=== PATIENT | male | born 1970 | race Caucasian/White ===

== ENCOUNTER 2019-02-04 06:18 | Inpatient (IN) | payer OTHER ==
[2019-02-01 08:50] LABS: BASOPHILS # (AUTO) 0.02 x10^3/uL (0-0.1); BASOPHILS % (AUTO) 0 % (0-1); EOSINOPHILS # (AUTO) 0.25 x10^3/uL (0-0.4); EOSINOPHILS % (AUTO) 4 % (1-7); LYMPHOCYTES # (AUTO) 2.05 x10^3/uL (1-3.4); LYMPHOCYTES % (AUTO) 29 % (22-44); MD NO; MEAN CORPUSCULAR HEMOGLOBIN 29.3 pg (27.5-34.5); MEAN CORPUSCULAR HGB CONC 32.7 g/dL (33.2-36.2); MEAN CORPUSCULAR VOLUME 89.7 fL (81-97); MEAN PLATELET VOLUME 8.1 fL (7.4-10.4); MONOCYTES # (AUTO) 0.42 x10^3/uL (0.2-0.8); MONOCYTES % (AUTO) 6 % (2-9); NEUTROPHILS # (AUTO) 4.36 x10^3/uL (1.8-6.8); NEUTROPHILS % (AUTO) 61 % (42-75); PLATELET COUNT 285 x10^3/uL (130-400); RED BLOOD COUNT 5.76 x10^6/uL (4.38-5.82); RED CELL DISTRIBUTION WIDTH 13.2 % (9.4-14.8)
[2019-02-01 09:03] LABS: ANION GAP 6 mmol/L (5-15); CALCIUM 9.1 mg/dL (8.5-10.1); CHLORIDE 111 mmol/L (98-107); CREATININE 0.96 mg/dL (0.7-1.3); INTERNATIONAL NORMALIZED RATIO 1.01 (0.93-1.1); PROTHROMBIN TIME 10.6 Seconds (9.6-11.5)
[2019-02-01 13:23] LABS: HEMOGLOBIN A1C 5.8 % (4.2-6.3)
[~2019-02-04] VITALS: Ht 177.8 cm; Wt 112.0 kg
[~2019-02-04 06:18] MED LIST: ALBU18HF INH; ASPI-647 PO; FLUT1AER INH; HYDR-3237 PO; HYDR-3241 PO; LACT1CAP35 PO; MELO15TA24 PO; MONT10TA9 PO; MORP30TA3 PO; MULT-412 PO; ONDA4TAB10 PO; OXYC5CAP2 PO; QVAR INH
[2019-02-04] MEDS ORDERED: ROPIvacaine/PF 0.5%, 20 ML ONE (06:19)
[2019-02-04] MEDS ORDERED: TRANEXAMIC ACID 100 MG/ML, 10ML ONE (06:19)
[2019-02-04] MEDS ORDERED: KETOROLAC 60 MG/2 ML ONE (06:19)
[2019-02-04] MEDS ORDERED: SODIUM CHLORIDE 0.9% 50 ML ONE (06:20)
[2019-02-04] MEDS ORDERED: VANCOMYCIN 1,000 MG ONE (06:20)
[2019-02-04] MEDS ORDERED: EPINEPHRINE 1 MG/ML, 1ML ONE ×2 (06:20→06:55)
[2019-02-04] MEDS ORDERED: ONDANSETRON 2MG/ML, 2ML IV PRN (06:30)
[2019-02-04] MEDS ORDERED: MAGNESIUM HYDROXIDE 8%, 30ML UDC PO PRN (06:30)
[2019-02-04] MEDS ORDERED: SCOPOLAMINE PATCH, 1.5MG PATCH.TD72 TD ONE (06:30)
[2019-02-04] MEDS ORDERED: BISACODYL 10 MG SUPP PR PRN (06:30)
[2019-02-04] MEDS ORDERED: OXYcodone IR 5MG TABLET PO PRN (06:30)
[2019-02-04] MEDS ORDERED: ZOLPIDEM 5MG TABLET PO PRN (06:30)
[2019-02-04] MEDS ORDERED: DIPHENHYDRAMINE 50 MG CAPSULE PO PRN (06:30)
[2019-02-04] MEDS ORDERED: ONDANSETRON 4 MG TABLET PO PRN (06:30)
[2019-02-04] MEDS ORDERED: HYDROmorphone 1 MG/ML, 1ML INJ IV PRN (06:30)
[2019-02-04] MEDS ORDERED: SENNA/DOCUSATE TABLET PO PRN (06:30)
[2019-02-04] MEDS ORDERED: ACETAMINOPHEN 650 MG/20.3 ML UDC PO PRN (06:30)
[2019-02-04] MEDS ORDERED: HYDROcodone/APAP 5/325 TABLET PO PRN (06:30)
[2019-02-04] MEDS ORDERED: ACETAMINOPHEN 500 MG TABLET ONE ×2 (06:38→07:16)
[2019-02-04] MEDS ORDERED: GABAPENTIN 300 MG CAPSULE ONE ×2 (06:38→07:16)
[2019-02-04] MEDS ORDERED: FENTANYL PF 250 MCG/5ML ONE (06:51)
[2019-02-04] MEDS ORDERED: MIDAZOLAM 1 MG/ML, 2ML ONE (06:51)
[2019-02-04] MEDS ORDERED: SUCCINYLCHOLINE 20 MG/ML, 10ML ONE (06:52)
[2019-02-04] MEDS ORDERED: LIDOCAINE-MPF 2% ,5ML ONE (06:52)
[2019-02-04] MEDS ORDERED: CEFAZOLIN 1,000 MG ONE ×2 (06:54)
[2019-02-04] MEDS ORDERED: DEXAMETHASONE 4 MG/ML, 1ML ONE (06:54)
[2019-02-04] MEDS ORDERED: ONDANSETRON 2MG/ML, 2ML ONE ×2 (06:55→11:20)
[2019-02-04] MEDS ORDERED: LACTATED RINGERS 1,000 ML IV SCH (07:09)
[2019-02-04] MEDS ORDERED: LIDOCAINE-MPF 1%, 2ML ONE (07:23)
[2019-02-04] MEDS ORDERED: GABAPENTIN 300 MG CAPSULE PO ONE (07:30)
[2019-02-04] MEDS ORDERED: ACETAMINOPHEN 500 MG TABLET PO ONE (07:30)
[2019-02-04] MEDS ORDERED: PROPOFOL 10 MG/ML, 20ML ONE (07:51)
[2019-02-04] MEDS ORDERED: OXYcodone 5 MG/5 ML ORAL.SOL UDC PO PRN (08:00)
[2019-02-04] MEDS ORDERED: FENTANYL PF 100 MCG/2ML IV PRN (08:00)
[2019-02-04] MEDS ORDERED: METOPROLOL 1 MG/ML, 5ML IV PRN (08:00)
[2019-02-04] MEDS ORDERED: LORazepam 2 MG/ML, 1ML IVPush PRN (08:00)
[2019-02-04] MEDS ORDERED: ALBUTEROL/IPRATROPIUM 2.5MG/0.5MG, 3 ML NPPB PRN (08:00)
[2019-02-04] MEDS ORDERED: PROMETHAZINE 25 MG/ML, 1ML IV PRN (08:00)
[2019-02-04] MEDS ORDERED: MEPERIDINE/PF 25MG/0.5ML IVPush PRN (08:00)
[2019-02-04] MEDS ORDERED: hydrALAzine 20 MG/ML, 1ML IV PRN (08:00)
[2019-02-04] MEDS ORDERED: LABETALOL 5MG/ML, 20ML IV PRN (08:00)
[2019-02-04] MEDS ORDERED: DOCUSATE 100 MG CAPSULE PO SCH (09:00)
[2019-02-04] MEDS ORDERED: HYDROmorphone 2 MG/ML, 1ML ONE (09:47)
[2019-02-04] MEDS ORDERED: OXYcodone 5 MG/5 ML ORAL.SOL UDC ONE (09:47)
[2019-02-04] MEDS ORDERED: FENTANYL PF 100 MCG/2ML ONE (09:47)
[2019-02-04] MEDS ORDERED: MEPERIDINE/PF 25MG/ML,1ML ONE (09:47)
[2019-02-04] MEDS ORDERED: TEMPLATE NON-FORMULARY MED. (Albuterol Sulfate (Ventolin Hfa) 2 PUFFS) INH SCH (10:00)
[2019-02-04] MEDS: HYDROmorphone 2 MG/ML, 1ML IVPush PRN ×5 (10:00→10:41)
[2019-02-04] MEDS ORDERED: TRANEXAMIC ACID 1,000 MG in SODIUM CHLORIDE 0.9% 100 ML IV ONE (10:30)
[2019-02-04 11:27] VITALS: BP 113/79
[2019-02-04] MEDS ORDERED: ALBUTEROL SULFATE 2.5 MG/3 ML NPPB PRN (11:30)
[2019-02-04] MEDS ORDERED: NS + 20MEQ KCL 1,000 ML IV SCH (12:00)
[2019-02-04] MEDS ORDERED: CEFAZOLIN PMX 2GM/50ML 50 ML IVPB SCH (15:00)
[2019-02-04 15:01] VITALS: BP 131/88
[2019-02-04] MEDS ORDERED: OXYC5TAB3 PO (15:09)
[2019-02-04] MEDS ORDERED: TRAM50TA2 PO (15:09)
[2019-02-04] MEDS ORDERED: MELO7.5T31 PO (15:10)
[2019-02-04] MEDS ORDERED: ASPIRIN 81 MG TABLET EC PO SCH (18:00)
[2019-02-05] MEDS ORDERED: DEXAMETHASONE 4 MG/ML, 1ML IVPush SCH (06:00)
[2019-02-05] MEDS ORDERED: FLUTICASONE/VILANTEROL 100-25MCG/INH INH SCH (09:00)
== END 2019-02-04 15:40 | disposition home or self-care (01) | DRG 468 ==
LOC: ORIP 06:18 → 4NOR 11:15 → DCLOUNGE 15:31
PROVIDERS: ADMIT Orthopaedic Surgery; ATTEND Orthopaedic Surgery
PROC: 0SPC0JZ Removal of Synthetic Substitute from Right Knee Joint, Open Approach (ICD-10-PCS; 2019-02-04)
PROC: 0SRC0J9 Replacement of Right Knee Joint with Synthetic Substitute, Cemented, Open Approach (ICD-10-PCS; 2019-02-04)
PROC: 3E0T3BZ Introduction of Anesthetic Agent into Peripheral Nerves and Plexi, Percutaneous Approach (ICD-10-PCS; principal; 2019-02-04 08:15)
DX: T84.032A Mechanical loosening of internal right knee prosthetic joint, initial encounter (principal); J45.909 Unspecified asthma, uncomplicated; I10 Essential (primary) hypertension; Z96.651 Presence of right artificial knee joint; Y83.8 Other surgical procedures as the cause of abnormal reaction of the patient, or of later complication, without mention of misadventure at the time of the procedure; Y92.89 Other specified places as the place of occurrence of the external cause
CPT/HCPCS: 36415; 73560; J3490; 80048; 83036; 85025; 85610; 85730; 87081; 87147; J0171; J0690; J1100; J1170; J1885; J2175; J2250; J2405; J2704; J2795; J3010; J3370; J0330; J7120